=== PATIENT | male | born 1965 | race Hispanic/Latino ===

== ENCOUNTER 2018-02-12 16:34 | Observation (INO) | payer BC ==
[~2018-02-12] VITALS: Ht 180.3 cm; Wt 137.9 kg
[2018-02-12 17:45] LABS: BASOPHILS % 0.4 % (0.0-1.0); EOSINOPHILS # (AUTO) 0.2 (0.0-0.4); HEMATOCRIT 46.1 % (38.2-49.6); HEMOGLOBIN 16.2 g/dL (14.0-18.0); LYMPHOCYTES # (AUTO) 1.8 (1.0-3.2); LYMPHOCYTES % 21.7 % (18.0-39.1); MEAN CORPUSCULAR HEMOGLOBIN 29.2 pg (28-32); MEAN CORPUSCULAR HGB CONC 35.1 g/dL (31-35); MEAN CORPUSCULAR VOLUME 83.2 fL (81-99); MONOCYTES # (AUTO) 0.6 (0.2-0.8); MONOCYTES % 6.9 % (4.4-11.3); NEUTROPHILS # (AUTO) 5.8 (2.1-6.9); NEUTROPHILS % 68.6 % (38.7-80.0); PLATELET COUNT 232 x10e3/uL (140-360); RED BLOOD COUNT 5.54 x10e6/uL (4.3-5.7); RED CELL DISTRIBUTION WIDTH 13.3 % (11.7-14.4)
[2018-02-12 17:58] LABS: CLARITY,URINE SL CLOUDY (CLEAR); COLOR,URINE YELLOW (YELLOW); LEUKOCYTE ESTERASE ,URINE NEGATIVE (NEGATIVE); NITRITE,URINE NEGATIVE (NEGATIVE); PROTEIN,URINE DIPSTICK TRACE (NEGATIVE)
[2018-02-12 17:59] LABS: BILIRUBIN,URINE NEGATIVE (NEGATIVE); EPITHELIAL CELLS,URINE RARE /LPF; KETONES,URINE NEGATIVE (NEGATIVE); MUCUS,URINE MANY (RARE); URINE UROBILINOGEN 0.2 mg/dL (0.2 - 1)
[2018-02-12 18:01] LABS: ALANINE AMINOTRANSFERASE 74 IU/L (0-55); ALBUMIN 3.6 g/dL (3.5-5.0); ALKALINE PHOSPHATASE 43 IU/L (40-150); BLOOD UREA NITROGEN 19 mg/dL (7-26); BUN/CREATININE RATIO 21 (6-25); CALCIUM 9.4 mg/dL (8.4-10.2); CARBON DIOXIDE 24 mmol/L (22-29); CHLORIDE 101 mmol/L (98-107); CREATININE, SERUM 0.92 mg/dL (0.72-1.25); EST GLOMERULAR FILTRATION RATE > 60 ML/MIN (60-); GLUCOSE 258 mg/dL (74-118); SODIUM 136 mmol/L (136-145)
[2018-02-12] MEDS: MORPHINE SULFATE 2 MG/ML SYR IV PRN ×2 (19:10→23:31)
[2018-02-12] MEDS: LEVOFLOXACIN 500MG/D5W 100ML IV SCH (19:10)
[2018-02-12] MEDS: ONDANSETRON HCL INJ 2 MG/ML VIAL IV PRN (19:11)
[2018-02-12] MEDS ORDERED: COZAAR100 MG PO (19:18)
[2018-02-12] MEDS ORDERED: [UNRECOGNIZED DRUG - OTHER] (19:18)
[2018-02-12] MEDS ORDERED: ASPIRIN325 MG PO (19:18)
[2018-02-12] MEDS ORDERED: HUMULIN R100 UNIT/2 (19:21)
[2018-02-12] MEDS ORDERED: VITAMIN D1000 UNI1 PO (19:21)
[2018-02-12] MEDS: METRONIDAZOLE 500MG/NS 100ML 100 ML IV SCH ×2 (20:23→23:52)
[2018-02-12 21:20] VITALS: BP 173/103
[2018-02-12] MEDS ORDERED: SODIUM CHLORIDE 0.9% 250ML 250 ML ONE (23:33)
[2018-02-13] VITALS (9 sets, daily range): BP systolic 118–157; BP diastolic 60–101
[2018-02-13] MEDS: MORPHINE SULFATE 2 MG/ML SYR IV PRN (06:22)
[2018-02-13] MEDS: METRONIDAZOLE 500MG/NS 100ML 100 ML IV SCH ×3 (06:22→17:24)
[2018-02-13 08:14] LABS: CHOL/HDL RATIO 4.2 (3.9-4.7)
--- NOTE | 2018-02-13 08:48 | History and Physical ---
PRIMARY CARE PHYSICIAN: Dr. Montemayor CHIEF COMPLAINT: Abdominal pain. HISTORY OF PRESENT ILLNESS: This is a 52-year-old man with a history of hypertension, diabetes mellitus type 2 and tobacco use, now developing lower abdominal pain prompting a visit to the hospital. His pain has been ongoing for 1 week. No nausea, vomiting, or diarrhea. No fever, chills or sweats. PAST MEDICAL HISTORY 1. Diabetes mellitus, type 2. 2. Hypertension. 3. Tobacco use by chewing tobacco. PAST SURGICAL HISTORY: None. ALLERGIES: PER ELECTRONIC MEDICAL RECORD. FAMILY/SOCIAL HISTORY: The patient is and has 3 children. Occasional alcohol. Chews tobacco. MEDICATIONS: Per electronic medical record. REVIEW OF SYSTEMS: Denies any dizziness, chest pain, shortness of breath, fever, chills, sweats, nausea, vomiting, diarrhea, headache, back pain, vision changes. PHYSICAL EXAMINATION VITAL SIGNS: Reviewed. GENERAL: A tired-appearing man resting in bed. HEENT: Anicteric. CARDIOVASCULAR: Normal S1 and S2. LUNGS: Moderate breath sounds. ABDOMEN: Soft, nondistended. He has tenderness in the lower quadrants bilaterally. No rebound or guarding. EXTREMITIES: He has trace edema. SKIN: Dry. PSYCHIATRIC: Flat affect. LABS: Reviewed. MEDICATIONS: Reviewed. ASSESSMENT: A 52-year-old man. 1. Acute diverticulitis of the sigmoid colon. 2. Morbid obesity. 3. Diabetes mellitus, type 2. 4. Transaminitis. 5. Hypertension. 6. Tobacco use. PLAN 1. N.P.O. status. 2. IV fluids. 3. Hemoglobin A1c and lipid panel. 4. Hepatitis panel. 5. Monitor closely. 6. Rehydrate the patient. 7. I have counseled the patient on caloric restriction, weight loss, and need for high-fiber diet in the future. Will also notify the patient the need to obtain a colonoscopy in 6 to 8 weeks from now. ABBY MONTOYA MD Job#: [id number]
[2018-02-13] MEDS: SODIUM CHLORIDE 0.9% 1000ML 1,000 ML IV SCH (08:59)
[2018-02-13] MEDS: FAMOTIDINE 20 MG/2 ML VIAL IV SCH ×2 (08:59→21:31)
[2018-02-13] MEDS ORDERED: MORPHINE SULFATE INJ 4 MG/ML INJ IV PRN (11:30)
[2018-02-13] MEDS ORDERED: HYDROMORPHONE 1MG/1ML INJ IV PRN (14:45)
[2018-02-13] MEDS: LEVOFLOXACIN 500MG/D5W 100ML IV SCH (18:30)
[2018-02-13] MEDS: ONDANSETRON HCL INJ 2 MG/ML VIAL IV PRN (20:08)
[2018-02-13] MEDS: HYDROMORPHONE 1MG/1ML INJ IV PRN (20:08)
[2018-02-14] MEDS: SODIUM CHLORIDE 0.9% 1000ML 1,000 ML IV SCH ×2 (00:39→05:32)
[2018-02-14] MEDS: METRONIDAZOLE 500MG/NS 100ML 100 ML IV SCH ×5 (00:39→23:21)
[2018-02-14] MEDS: HYDROMORPHONE 1MG/1ML INJ IV PRN ×4 (00:42→20:56)
[2018-02-14] MEDS: ONDANSETRON HCL INJ 2 MG/ML VIAL IV PRN (00:42)
[2018-02-14 04:55] VITALS: BP 131/76
[2018-02-14 07:15] VITALS: BP 131/76
[2018-02-14 07:22] LABS: BASOPHILS % 0.5 % (0.0-1.0); EOSINOPHILS # (AUTO) 0.1 (0.0-0.4); EOSINOPHILS % 2.2 % (0.0-6.0); HEMATOCRIT 44.3 % (38.2-49.6); HEMOGLOBIN 15.1 g/dL (14.0-18.0); LYMPHOCYTES # (AUTO) 1.6 (1.0-3.2); LYMPHOCYTES % 24.9 % (18.0-39.1); MEAN CORPUSCULAR HEMOGLOBIN 28.8 pg (28-32); MEAN CORPUSCULAR HGB CONC 34.1 g/dL (31-35); MEAN CORPUSCULAR VOLUME 84.5 fL (81-99); MONOCYTES # (AUTO) 0.6 (0.2-0.8); MONOCYTES % 8.6 % (4.4-11.3); NEUTROPHILS # (AUTO) 4.1 (2.1-6.9); NEUTROPHILS % 63.5 % (38.7-80.0); PLATELET COUNT 181 x10e3/uL (140-360); RED BLOOD COUNT 5.24 x10e6/uL (4.3-5.7); RED CELL DISTRIBUTION WIDTH 13.2 % (11.7-14.4)
[2018-02-14 07:40] LABS: BLOOD UREA NITROGEN 18 mg/dL (7-26); BUN/CREATININE RATIO 20 (6-25); CARBON DIOXIDE 26 mmol/L (22-29); CHLORIDE 103 mmol/L (98-107); CREATININE, SERUM 0.88 mg/dL (0.72-1.25); EST GLOMERULAR FILTRATION RATE > 60 ML/MIN (60-); GLUCOSE 196 mg/dL (74-118); SODIUM 136 mmol/L (136-145)
[2018-02-14 08:20] VITALS: BP 104/58
[2018-02-14] MEDS: FAMOTIDINE 20 MG/2 ML VIAL IV SCH ×2 (08:35→20:55)
[2018-02-14 11:37] VITALS: BP 142/82
[2018-02-14] MEDS ORDERED: HUMULIN R500 UNIT/1 SQ (11:47)
[2018-02-14 16:51] VITALS: BP 145/85
[2018-02-14] MEDS: LEVOFLOXACIN 500MG/D5W 100ML IV SCH (17:26)
[2018-02-14 19:45] VITALS: BP 143/82
[2018-02-15] VITALS: BP 143/82
[2018-02-15 00:30] VITALS: BP 134/62
[2018-02-15 01:10] VITALS: BP 169/79
[2018-02-15] MEDS: METRONIDAZOLE 500MG/NS 100ML 100 ML IV SCH (05:23)
[2018-02-15] MEDS: SODIUM CHLORIDE 0.9% 1000ML 1,000 ML IV SCH (08:07)
[2018-02-15 08:15] VITALS: BP 131/68
[2018-02-15] MEDS: FAMOTIDINE 20 MG/2 ML VIAL IV SCH (09:00)
--- NOTE | 2018-02-16 22:41 | Progress Note ---
DATE: February 14, 2018 TIME: 7:00 a.m. OVERNIGHT: No events. Feeling a lot better. REVIEW OF SYSTEMS: Denies any dizziness. PHYSICAL EXAM VITAL SIGNS: Reviewed. GENERAL: Tired-appearing man resting in bed. HEENT: Anicteric. CARDIOVASCULAR: Normal S1 and S2. LUNGS: Moderate breath sounds. ABDOMEN: Soft, nondistended, mild tenderness in lower quadrant. EXTREMITIES: No edema. SKIN: Dry. PSYCHIATRIC: Flat affect. LABS: Reviewed. MEDICATIONS: Reviewed. ASSESSMENT AND PLAN: A 52-year-old man. 1. Acute diverticulitis of the sigmoid colon. 2. Morbid obesity. 3. Diabetes mellitus, type 2. 4. Transaminitis. 5. Hypertension. 6. Tobacco use. PLAN 1. Continue pain medication. 2. Follow up hemoglobin A1c and lipid panel. 3. Discharge planning. Job#: [id number] CQ
== END 2018-02-15 10:42 | disposition left against medical advice (07) ==
LOC: ER 16:34 → ERHOLD 21:01 → IMCU 21:15
PROVIDERS: ADMIT Internal Medicine; ATTEND Internal Medicine
DX: K57.32 Diverticulitis of large intestine without perforation or abscess without bleeding (principal); I10 Essential (primary) hypertension; E11.9 Type 2 diabetes mellitus without complications; Z72.0 Tobacco use; E66.01 Morbid (severe) obesity due to excess calories; R74.0 Nonspecific elevation of levels of transaminase and lactic acid dehydrogenase [LDH]; Z68.41 Body mass index [BMI] 40.0-44.9, adult
CPT/HCPCS: 36415 ×4; 80048; 80053; 80061; 81001; 82948 ×4; 83036; 83605; 85025 ×2; 87040; 93005; 96374; 96376; 99284; G0378 ×4; J1170 ×2; J1956 ×3; J2270 ×3; J2405 ×3; J7030 ×2; J7050